=== PATIENT | female | born 1970 | race Caucasian/White ===

== ENCOUNTER 2018-04-20 16:22 | Emergency (ER) | payer MEDICAID ==
[~2018-04-20] VITALS: Ht 167.6 cm; Wt 119.5 kg
[~2018-04-20 16:22] MED LIST: HYDR-4061 PO; HYDR25TA PO
[2018-04-20] MEDS ORDERED: KETOROLAC TROMETHAMINE 60 MG/2 ML VIAL IM ONE (19:00)
[2018-04-20 20:15] VITALS: BP 142/69
== END 2018-04-20 21:03 | disposition home or self-care (01) ==
LOC: EMS 16:22
DX: S43.402A Unspecified sprain of left shoulder joint, initial encounter (principal); S16.1XXA Strain of muscle, fascia and tendon at neck level, initial encounter; S70.02XA Contusion of left hip, initial encounter; W01.0XXA Fall on same level from slipping, tripping and stumbling without subsequent striking against object, initial encounter; Y93.89 Activity, other specified; Y92.89 Other specified places as the place of occurrence of the external cause; Y99.8 Other external cause status
CPT/HCPCS: 73030; 73503; 96372; 99284; J1885